=== PATIENT | female | born 1985 | race Hispanic/Latino ===

== ENCOUNTER 2019-07-06 16:55 | Emergency (ER) | payer OTHER ==
[2019-07-06] MEDS ORDERED: CODEINE 30MG/APAP 300MG TAB ONE (17:27)
[2019-07-06] MEDS ORDERED: IBUPROFEN 200 MG TAB PO ONE (17:27)
--- NOTE | 2019-07-06 17:49 | RAD REPORT ---
EXAM DESCRIPTION: RAD - Foot Right 3 View - 07/06/2019 5:37 pm CLINICAL HISTORY: Right foot pain status post injury FINDINGS: No fracture or dislocation is seen If patient continues to have symptoms to suggest an occult fracture follow up plain film series in 1 week would be recommended
--- NOTE | 2019-07-06 17:59 | ER ---
Nurse's Notes [facility] Name: Salina Carranza Age: 33 yrs Sex: Female : 1985 Arrival Date: 07/06/2019 Time: 16:59 Bed 7 Private MD: Diagnosis: Pain in right foot Presentation: 07/06 17:02 Presenting complaint: Patient states: I hurt my right foot. Transition of care: patient la1 was not received from another setting of care. Onset of symptoms was July 06, 2019. Risk Assessment: Do you want to hurt yourself or someone else? Patient reports no desire to harm self or others. Initial Sepsis Screen: Does the patient meet any 2 criteria? No. Patient's initial sepsis screen is negative. Does the patient have a suspected source of infection? Yes:. Care prior to arrival: None. 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 - Social history:: Smoking status: Patient/guardian denies using tobacco. - Ebola Screening: : No symptoms or risks identified at this time. Screenin:53 Abuse screen: Denies threats or abuse. Denies injuries from another. Nutritional rv screening: No deficits noted. Tuberculosis screening: No symptoms or risk factors identified. Fall Risk None identified. Assessment: 17:52 General: Appears in no apparent distress. comfortable, Behavior is calm, cooperative. rv Pain: Complains of pain in right foot. Neuro: Level of Consciousness is awake, alert, obeys commands, Oriented to person, place, time, situation. Cardiovascular: Patient's skin is warm and dry. Respiratory: Airway is compromised. GI: No signs and/or symptoms were reported involving the gastrointestinal system. : No signs and/or symptoms were reported regarding the genitourinary system. EENT: No signs and/or symptoms were reported regarding the EENT system. Derm: Skin is healthy with good turgor. Musculoskeletal: Reports pain in right foot. Vital Signs: 17:04 BP 124 / 80; Pulse 83; Resp 16; Temp 97.4; Pulse Ox 100% on R/A; la1 17:53 BP 126 / 81; Pulse 81; Resp 15; Pulse Ox 100% on R/A; rv ED Course: 16:59 Patient arrived in ED. mr 17:03 Triage completed. la1 17:04 Arm band placed on left wrist. la1 17:06 Armand Coker NP is PHCP. pm1 17:06 Angus Escamilla MD is Attending Physician. pm1 17:35 Foot Right 3 View XRAY In Process Unspecified. EDMS 17:52 Arturo Jaime, RN is Primary Nurse. rv 17:53 Patient has correct armband on for positive identification. Bed in low position. Call rv light in reach. Side rails up X 1. Adult w/ patient. Pulse ox on. NIBP on. 18:17 No provider procedures requiring assistance completed. Patient did not have IV access rv during this emergency room visit. Administered Medications: 17:28 Drug: Tylenol #3 (300 mg-30 mg) 1 tablet Route: PO; hb 17:54 Follow up: Response: No adverse reaction; Pain is decreased; RASS: Alert and Calm (0) rv 17:28 Drug: Ibuprofen 600 mg Route: PO; hb 17:54 Follow up: Response: No adverse reaction rv Outcome: 17:58 Discharge ordered by MD. pm1 18:18 Discharged to home with crutches, with family. rv 18:18 Condition: good 18:18 Discharge instructions given to patient, by TITO GREENBERG. Instructed on discharge instructions, follow up and referral plans. medication usage, Demonstrated understanding of instructions, follow-up care, medications, crutch walking, Prescriptions given X 1. 18:19 Patient left the ED. rv Signatures: Dispatcher [employer] [facility] Angie YingGavino, RN RN la1 Armand Coker, RAIL BONDER RAIL BONDER pm1 Wendy Cowart RN RN Arturo Jaime RN RN rv
--- NOTE | 2019-07-06 18:00 | EDPHYS ---
Physician Documentation [facility] Name: Salina Carranza Age: 33 yrs Sex: Female : 1985 Arrival Date: 07/06/2019 Time: 16:59 Bed 7 Private MD: ED Physician Angus Escamilla HPI: 07/06 17:22 This 33 yrs old Female presents to ER via Wheelchair with complaints of Right pm1 foot pain. 17:22 The patient presents with pain. The complaints affect the lateral aspect of right foot pm1 and dorsum of right foot. 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 Pain with weight bearing. Onset: The symptoms/episode began/occurred just prior to arrival. Modifying factors: The symptoms are alleviated by elevating leg, the symptoms are aggravated by weight bearing. Associated signs and symptoms: The patient has no apparent associated signs or symptoms, Pertinent negatives calf tenderness, fever, numbness, tingling, weakness. Treatment prior to arrival includes: no previous treatment. Severity of symptoms: in the emergency department the symptoms are unchanged. The patient has not experienced similar symptoms in the past. The patient has not recently seen a physician. 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 - Social history:: Smoking status: Patient/guardian denies using tobacco. - Ebola Screening: : No symptoms or risks identified at this time. ROS: 17:22 Constitutional: Negative for fever, chills, and weight loss, Eyes: Negative for injury, pm1 pain, redness, and discharge, ENT: Negative for injury, pain, and discharge, Neck: Negative for injury, pain, and swelling, Cardiovascular: Negative for chest pain, palpitations, and edema, Respiratory: Negative for shortness of breath, cough, wheezing, and pleuritic chest pain, Abdomen/GI: Negative for abdominal pain, nausea, vomiting, diarrhea, and constipation, Back: Negative for injury and pain. 17:22 Skin: Negative for injury, rash, and discoloration, Neuro: Negative for headache, weakness, numbness, tingling, and seizure. 17:22 MS/extremity: Positive for pain, of the lateral aspect of right foot and dorsum of right foot, Negative for deformity. Exam: 17:22 Constitutional: This is a well developed, well nourished patient who is awake, alert, pm1 and in no acute distress. Head/Face: Normocephalic, atraumatic. Chest/axilla: Normal chest wall appearance and motion. Nontender with no deformity. No lesions are appreciated. Cardiovascular: Regular rate and rhythm with a normal S1 and S2. No gallops, murmurs, or rubs. Normal PMI, no JVD. No pulse deficits. Respiratory: Lungs have equal breath sounds bilaterally, clear to auscultation and percussion. No rales, rhonchi or wheezes noted. No increased work of breathing, no retractions or nasal flaring. Back: No spinal tenderness. No costovertebral tenderness. Full range of motion. Skin: Warm, dry with normal turgor. Normal color with no rashes, no lesions, and no evidence of cellulitis. 17:22 Musculoskeletal/extremity: Extremities: grossly normal except: noted in the lateral aspect of right foot and dorsum of right foot: tenderness, There is no evidence of deformity, ecchymosis, Circulation is intact in all extremities. Vital Signs: 17:04 BP 124 / 80; Pulse 83; Resp 16; Temp 97.4; Pulse Ox 100% on R/A; la1 17:53 BP 126 / 81; Pulse 81; Resp 15; Pulse Ox 100% on R/A; rv MDM: 17:06 Patient medically screened. [facility] 17:31 Data reviewed: vital signs. Data interpreted: Pulse oximetry: on room air is 100 %. pm1 Interpretation: normal. 17:58 Counseling: I had a detailed discussion with the patient and/or guardian regarding: the pm1 historical points, exam findings, and any diagnostic results supporting the discharge/admit diagnosis, radiology results, the need for outpatient follow up, to return to the emergency department if symptoms worsen or persist or if there are any questions or concerns that arise at home. 07/06 17:08 Order name: Foot Right 3 View XRAY; Complete Time: 17:59 pm1 07/06 17:59 Order name: Crutches; Complete Time: 18:18 pm1 07/06 18:01 Order name: Post-op shoe; Complete Time: 18:17 pm1 Administered Medications: 17:28 Drug: Tylenol #3 (300 mg-30 mg) 1 tablet Route: PO; hb 17:54 Follow up: Response: No adverse reaction; Pain is decreased; RASS: Alert and Calm (0) rv 17:28 Drug: Ibuprofen 600 mg Route: PO; hb 17:54 Follow up: Response: No adverse reaction rv Disposition: 07/06/19 17:58 Discharged to Home. Impression: Pain in right foot. - Condition is Stable. - Discharge Instructions: Crutch Use, Foot Sprain, Foot Pain. - Prescriptions for Tylenol- Codeine #3 300-30 mg Oral Tablet - take 2 tablets by ORAL route every 6 hours As needed; 20 tablet. Diclofenac Sodium 75 mg Oral Tablet Sustained Release - take 1 tablet by ORAL route 2 times per day; 30 tablet. - Work release form, Medication Reconciliation Form, Thank You Letter, Antibiotic Education, Prescription Opioid Use form. - Follow up: Emergency Department; When: As needed; Reason: Worsening of condition. Follow up: Private Physician; When: 2 - 3 days; Reason: Recheck today's complaints, Continuance of care, Re-evaluation by your physician. - Problem is new. - Symptoms have improved. Addendum: 07/08/2019 09:14 Co-signature as Attending Physician, Angus Escamilla MD I agree with the assessment and c herring plan of care. Signatures: Dispatcher [employer] Angus Nagel MD MD cha Attema, Lee, RN RN la1 Armand Coker, DAYCARE TEACHER DAYCARE TEACHER pm1 Wendy Cowart, DIONICIO RN Arturo Jaime RN RN rv Corrections: (The following items were deleted from the chart) 07/06 18:19 17:58 07/06/2019 17:58 Discharged to Home. Impression: Pain in right foot. Condition is rv Stable. Forms are Medication Reconciliation Form, Thank You Letter, Antibiotic Education, Prescription Opioid Use. Follow up: Emergency Department; When: As needed; Reason: Worsening of condition. Follow up: Private Physician; When: 2 - 3 days; Reason: Recheck today's complaints, Continuance of care, Re-evaluation by your physician. Problem is new. Symptoms have improved. pm1
== END 2019-07-06 18:19 | disposition home or self-care (01) ==
LOC: ER 16:55
DX: M79.671 Pain in right foot (principal)
CPT/HCPCS: 99284